=== PATIENT | female | born 1955 | race Caucasian/White ===

== ENCOUNTER 2019-09-11 11:44 | Inpatient (IN) | payer BC, OTHER ==
[~2019-09-11] VITALS: Ht 154.9 cm; Wt 86.2 kg
--- NOTE | 2019-09-11 11:50 | NUR ---
PT TO ER BED 9
[2019-09-11 11:52] VITALS: BP 131/75
--- NOTE | 2019-09-11 12:07 | NUR ---
hx of crohn's c/o bright red blood per rectum and lower abdominal cramping---
[2019-09-11] MEDS ORDERED: NACL 0.9% 1,000 ML IV SCH (12:37)
[2019-09-11] MEDS ORDERED: fentaNYL 0.05 MG/ML VIAL IVP ONE (12:40)
[2019-09-11] MEDS ORDERED: ONDANSETRON 4 MG/2 ML VIAL IVP ONE (12:40)
[2019-09-11 13:28] LABS: BASOPHILS % (AUTO) 0.2 % (0.0-2.0); EOSINOPHILS # (AUTO) 0.1 K/uL (0-0.4); EOSINOPHILS % (AUTO) 1.2 % (0.0-4.0); HEMATOCRIT 26.7 % (36-48); HEMOGLOBIN 8.5 g/dL (12.0-16.0); LYMPHOCYTES # (AUTO) 1.1 K/uL (2.5-16.5); LYMPHOCYTES % (AUTO) 14.7 % (20.5-51.1); MEAN CORPUSCULAR HEMOGLOBIN 22 pg (27-31); MEAN CORPUSCULAR HGB CONC 32 g/dL (33-37); MEAN CORPUSCULAR VOLUME 70.3 fL (80-94); MONOCYTES # (AUTO) 0.8 K/uL (0.8-1.0); MONOCYTES % (AUTO) 10.6 % (1.7-9.3); NEUTROPHILS # (AUTO) 5.4 K/uL (1.8-7.7); NEUTROPHILS % (AUTO) 73.3 % (42.2-75.2); PLATELET COUNT (AUTO) 485 K/uL (140-450); RED BLOOD CELL COUNT(AUTO) 3.79 MIL/uL (4.20-5.40); RED CELL DISTRIBUTION WIDTH 18.5 % (11.6-13.7); WHITE BLOOD COUNT (AUTO) 7.3 K/uL (4.8-10.8)
[2019-09-11 13:50] LABS: PROTHROMBIN TIME 10.8 secs (10.8-13.4)
[2019-09-11 14:02] LABS: ALBUMIN 2.6 g/dL (3.4-5.0); CARBON DIOXIDE 29.5 mmol/L (21-32); CREATININE 0.7 mg/dL (0.6-1.3); POTASSIUM 3.5 mmol/L (3.5-5.1); TOTAL BILIRUBIN 0.5 mg/dL (0.0-1.0)
--- NOTE | 2019-09-11 14:26 | NUR ---
PT TO CT VIA [facility]
--- NOTE | 2019-09-11 14:58 | NUR ---
pt back fron CT family at bedside. vss
[2019-09-11] MEDS ORDERED: HYDROcodone/APAP 7.5/325 MG 1 TAB PO PRN (17:00)
[2019-09-11] MEDS ORDERED: ACETAMINOPHEN 325 MG TAB PO PRN (17:00)
[2019-09-11] MEDS ORDERED: MORPHINE SULFATE 2 MG/ML SYR IVP PRN (17:00)
[2019-09-11] MEDS ORDERED: ONDANSETRON 4 MG/2 ML VIAL IM/IVP PRN (17:00)
[2019-09-11] MEDS ORDERED: DOCUSATE SODIUM 100 MG GELCAP PO PRN (17:00)
[2019-09-11 17:07] LABS: APPEARANCE,URINE CLEAR (CLEAR); BILIRUBIN,URINE NEGATIVE (NEGATIVE); BLOOD, URINE TRACE-L (NEGATIVE); COLOR,URINE YELLOW (YELLOW); LEUKOCYTE ESTERASE ,URINE TRACE (NEGATIVE); NITRITE, URINE POSITIVE (NEGATIVE); PH,URINE 7.5 (5.0-9.0); UGLUCOSE NEGATIVE (NEGATIVE)
[2019-09-11 17:16] LABS: RBC,URINE 0-5 /HPF (0-5)
--- NOTE | 2019-09-11 17:48 | NUR ---
Pt transferred to Tele via [facility] ROOM 106-A REPORT GIVEN TO JESENIA RICHARDSON
--- NOTE | 2019-09-11 17:50 | NUR ---
PATIENT ARRIVED FROM ER, AMBULATED TO [facility] BED WITH STEADY GAIT. NO BLEEDING NOTED. NO DISTRESS NOTED. AAOX4, CALM, COOPERATIVE, SKIN COLOR APPROPRIATE TO ETHNICITY, WARM TO TOUCH. SKIN INTACT. IV SITE INTACT, PATENT. RESPIRATIONS EVEN, UNLABORED, ON ROOM AIR. ORIENTED PATIENT TO ROOM AND CALL LIGHT. REVIEWED PLAN OF CARE WITH PATIENT. PATIENT VERBALIZED UNDERSTANDING. SAFETY MEASURES IN PLACE, CALL LIGHT WITHIN REACH. WILL CONTINUE TO MONITOR.
[2019-09-11 18:41] LABS: CHOL/HDL RATIO 3.5 (1-4.5); FREE T4 (FREE THYROXINE) 1.87 ng/dL (0.76-1.46); MAGNESIUM 1.9 mg/dL (1.8-2.4); PHOSPHORUS 3.7 mg/dL (2.5-4.9); THYROID STIMULATING HORMONE 1.57 uIU/mL (0.34-3.74)
[2019-09-11] MEDS ORDERED: MULT-2253 PO (18:50)
[2019-09-11] MEDS ORDERED: CRAN450C PO (18:50)
[2019-09-11] MEDS ORDERED: FOLIC ACID PO (18:50)
[2019-09-11] MEDS ORDERED: METF500T PO (18:50)
[2019-09-11] MEDS ORDERED: FERR325E14 PO (18:50)
[2019-09-11] MEDS ORDERED: VITAMIN D3 PO (18:50)
[2019-09-11] MEDS ORDERED: CALCIUM PO (18:50)
[2019-09-11] MEDS ORDERED: SIMV20TA1 PO (18:50)
[2019-09-11] MEDS ORDERED: LATA7.5D OP (18:50)
[2019-09-11] MEDS ORDERED: GLIP5TAB4 PO (18:50)
[2019-09-11] MEDS ORDERED: BIOT10002 PO (18:50)
[2019-09-11] MEDS ORDERED: FAMO10TA93 PO (18:50)
[2019-09-11] MEDS ORDERED: LATA2.5S8 OP (18:50)
[2019-09-11] MEDS ORDERED: CHOL100013 PO (18:50)
[2019-09-11] MEDS ORDERED: ADAL40KI1 SUBQ (18:50)
[2019-09-11] MEDS ORDERED: FOLIC (18:50)
--- NOTE | 2019-09-11 19:18 | NUR ---
GAVE REPORT TO VEHICLE ASSEMBLER NURSE FOR CONTINUITY OF CARE. PATIENT IN STABLE CONDITION.
--- NOTE | 2019-09-11 19:19 | NUR ---
RECEIVED BEDSIDE SHIFT REPORT FROM AM SHIFT NURSE JESENIA. PATIENT IS LYING IN BED WITH FAMILY AT BEDSIDE. NO SOB OR DISTRESS NOTED. ON ROOM AIR. IV ACCESS ON RIGHT AC 20 GAUGE, PATENT AND INTACT, SALINE LOCK. BED IN LOW, SAFETY MEASURES IN PLACE. PATIENT IS AMBULATORY. CALL LIGHT PLACED WITHIN PATIENT REACH. BOARD UPDATED. WILL CONTINUE TO MONITOR PATIENT.
[2019-09-11] MEDS ORDERED: DEXTROSE 50% 50 ML SYR IVP PRN (19:40)
[2019-09-11] MEDS ORDERED: methylPREDNISolone SS 125 MG/2 ML VIAL IVP SCH (20:00)
[2019-09-11] MEDS: BLOOD GLUCOSE MONITORING 1 DEV DEV FS SCH (21:00)
--- NOTE | 2019-09-11 21:00 | NUR ---
PATIENT HAD A BLOOD GLUCOSE RESULT OF 135. NO INSULIN COVERAGE NEEDED. WILL CONTINUE TO MONITOR PATIENT.
[2019-09-11 21:20] LABS: BARBITURATE, URINE NEG. ng/ml (NEG <=200); BENZODIAZEPINE, URINE NEG. ng/mL (NEG <=200); CANNABINOID, URINE NEG. ng/mL (NEG <=50); COCAINE, URINE NEG. ng/mL (NEG <=300); OPIATE, URINE NEG. ng/mL (NEG <=2000); PHENCYCLIDINE SCREEN,URINE NEG. ng/mL (NEG <=25)
[2019-09-11] MEDS ORDERED: AMPICILLIN/SULBACTAM 1.5 GM VIAL ONE (21:56)
[2019-09-11] MEDS: AMPICILLIN/SULBACTAM 1.5 GM in NACL 0.9% 50 ML IV SCH (22:47)
[2019-09-11] MEDS: DEXT 5% / NACL 0.9% 500 ML IV SCH (22:48)
--- NOTE | 2019-09-12 00:05 | NUR ---
VITALS TAKEN AT THIS TIME. PATIENT IS RESTING COMFORTABLY. NO SOB OR DISTRESS NOTED. WILL CONTINUE TO MONITOR PATIENT.
[2019-09-12 00:15] VITALS: BP 113/60
[2019-09-12] MEDS: DEXT 5% / NACL 0.9% 500 ML IV SCH ×4 (02:00→17:11)
--- NOTE | 2019-09-12 02:15 | NUR ---
ROUNDS DONE. VISIBLE CHEST RISE AND FALL NOTED. WILL CONTINUE TO MONITOR PATIENT.
[2019-09-12 04:00] VITALS: BP 118/63
--- NOTE | 2019-09-12 04:00 | NUR ---
VITALS TAKEN AT THIS TIME. VISIBLE CHEST RISE AND FALL NOTED. WILL CONTINUE TO MONITOR PATIENT.
[2019-09-12] MEDS ORDERED: AMPICILLIN/SULBACTAM 1.5 GM VIAL ONE (04:33)
[2019-09-12] MEDS: AMPICILLIN/SULBACTAM 1.5 GM in NACL 0.9% 50 ML IV SCH ×2 (04:39→12:12)
[2019-09-12] MEDS: INSULIN LISPRO SLIDING SCALE 100 UNITS/ML VIAL SUBQ PRN ×4 (06:27→21:33)
[2019-09-12] MEDS: BLOOD GLUCOSE MONITORING 1 DEV DEV FS SCH ×4 (06:32→21:33)
--- NOTE | 2019-09-12 06:33 | NUR ---
PATIENT NOTED WITH A BLOOD GLUCOSE RESULT OF 195 WITH 2 UNITS OF REGULAR INSULIN GIVEN. WILL CONTINUE TO MONITOR PATIENT.
--- NOTE | 2019-09-12 06:36 | NUR ---
PATIENT IN STABLE CONDITION. CALL LIGHT PLACED WITHIN PATIENT REACH. WILL ENDORSE TO AM SHIFT NURSE FOR CONTINUITY OF CARE.
[2019-09-12 07:03] LABS: BASOPHILS % (AUTO) 0.1 % (0.0-2.0); EOSINOPHILS % (AUTO) 0.1 % (0.0-4.0); HEMATOCRIT 25.4 % (36-48); HEMOGLOBIN 8.2 g/dL (12.0-16.0); LYMPHOCYTES # (AUTO) 0.4 K/uL (2.5-16.5); LYMPHOCYTES % (AUTO) 6.4 % (20.5-51.1); MEAN CORPUSCULAR HEMOGLOBIN 23 pg (27-31); MEAN CORPUSCULAR HGB CONC 32 g/dL (33-37); MEAN CORPUSCULAR VOLUME 70.6 fL (80-94); MONOCYTES # (AUTO) 0.1 K/uL (0.8-1.0); MONOCYTES % (AUTO) 1.9 % (1.7-9.3); NEUTROPHILS # (AUTO) 6.1 K/uL (1.8-7.7); NEUTROPHILS % (AUTO) 91.5 % (42.2-75.2); PLATELET COUNT (AUTO) 456 K/uL (140-450); WHITE BLOOD COUNT (AUTO) 6.7 K/uL (4.8-10.8)
--- NOTE | 2019-09-12 07:27 | NUR ---
SHIFT REPORT RECEIVED M TAXI CAB DRIVER NURSE. PT IS IN BED ALERT AND AWAKE. NO COMPLAINS OF PAIN. CALL LIGHT IN REACH.
[2019-09-12 07:35] LABS: ANION GAP 11.3 (8-16); CARBON DIOXIDE 30.7 mmol/L (21-32); CREATININE 0.6 mg/dL (0.6-1.3)
[2019-09-12 07:47] LABS: MAGNESIUM 1.9 mg/dL (1.8-2.4)
[2019-09-12 08:00] VITALS: BP 119/59
--- NOTE | 2019-09-12 08:23 | NUR ---
PATIENT HAS BEEN SCREENED AND CATEGORIZED MODERATE NUTRITION RISK. PATIENT WILL BE SEEN WITHIN 3-5 DAYS OF ADMISSION. 09/14/19 09/16/[address]
[2019-09-12] MEDS: LACTOBACILLUS RHAMNOSUS GG 1 EACH CAP PO SCH (08:54)
[2019-09-12] MEDS: methylPREDNISolone SS 40 MG/ML VIAL IVP SCH ×2 (08:54→21:24)
[2019-09-12] MEDS ORDERED: SIMETHICONE 80 MG TAB.CHEW PO PRN (09:05)
--- NOTE | 2019-09-12 09:45 | NUR ---
PT IS RESTING IN BED AT THIS TIME. PT IS ALERT WITH FAMILY BE BEDSIDE. NO DISTRESS NOTED. CALL LIGHT IN REACH.
[2019-09-12] MEDS: MESALAMINE 250 MG CAPER PO SCH ×3 (09:51→17:08)
--- NOTE | 2019-09-12 11:54 | NUR ---
PT IS IN BED ALERT AND WAKE. PT TALKING TO DAUGHTER IN LAW. NO COMPLAINS OF PAIN.NO DISTRESS NOTED. CALL LIGHT IN REACH.
[2019-09-12 12:00] VITALS: BP 129/64
[2019-09-12 16:00] VITALS: BP 121/57
[2019-09-12 16:09] LABS: T4 (THYROXINE) 9.2 ug/dL (4.5-12.0)
--- NOTE | 2019-09-12 19:05 | NUR ---
RECEIVED BEDSIDE REPORT FROM AM SHIFT NURSE. PATIENT IS SITTING ON BED AWAKE AND ALERT, WITH ON GOING CONSULTATION AT THIS TIME WITH MD AND FAMILY MEMBERS. NO SOB OR DISTRESS NOTED. ON ROOM AIR. IV ACCESS ON RIGHT AC 20 GAUGE. PATENT, INTACT AND INFUSING WELL. BED IN LOW, SAFETY MEASURES IN PLACE. SKIN IS INTACT. INITIAL ASSESSMENT DONE. BOARD UPDATED. CALL LIGHT PLACED WITHIN PATIENT REACH. WILL CONTINUE TO MONITOR PATIENT.
--- NOTE | 2019-09-12 19:24 | NUR ---
SHIFT REPORT GIVEN TO WATER JET OPERATOR NURSE. PT IS IN BED IN STABLE CONDITION. FAMILY BY BEDSIDE. CALL LIGHT IN REACH.
[2019-09-12] MEDS ORDERED: LEVOFLOXACIN 500 MG/D5W PREMIX 100 ML IV SCH (20:00)
[2019-09-12] MEDS ORDERED: SODIUM FERRIC GLUCONATE 125 MG in NACL 0.9% 100 ML IV SCH (20:00)
[2019-09-12 20:10] VITALS: BP 108/56
--- NOTE | 2019-09-12 20:11 | NUR ---
2 VIALS OF SODIUM FERRIC GLUCONATE 62.5MG WAS PULLED OUT OF OMNICELL TO COMPLETE DOSE OF SODIUM FERRIC GLUCONATE 125MG PER MD ORDER. EMAR ONLY LET ME SCAN 1 VIAL OF SODIUM FERRIC GLUCONATE 62.5MG. VERIFIED BY RN NURSE MEZA AND CHARGE NURSE ROY. FLOYD
--- NOTE | 2019-09-12 21:30 | NUR ---
PATIENT HAD A BLOOD GLUCOSE RESULT OF 154 WITH 2 UNITS OF REGULAR INSULIN GIVEN. WILL CONTINUE TO MONITOR PATIENT.
--- NOTE | 2019-09-12 22:20 | NUR ---
ROUNDS DONE. PATIENT RESTING COMFORTABLY WITH EYES CLOSED. VISIBLE CHEST RISE AND FALL NOTED. CALL LIGHT WITHIN PATIENT REACH. WILL CONTINUE TO MONITOR PATIENT.
[2019-09-13 00:05] VITALS: BP 106/55
--- NOTE | 2019-09-13 00:05 | NUR ---
VITALS TAKEN AT THIS TIME. VISIBLE CHEST RISE AND FALL NOTED. CALL LIGHT WITHIN PATIENT REACH. WILL CONTINUE TO MONITOR PATIENT.
[2019-09-13] MEDS: DEXT 5% / NACL 0.9% 500 ML IV SCH (01:58)
--- NOTE | 2019-09-13 02:28 | NUR ---
ROUNDS DONE. NO SOB OR DISTRESS NOTED. CALL LIGHT PLACED WITHIN PATIENT REACH. WILL CONTINUE TO MONITOR PATIENT.
[2019-09-13] MEDS ORDERED: DEXT 5% /NACL 0.9% 1,000 ML IV SCH (03:15)
[2019-09-13 04:05] VITALS: BP 108/63
--- NOTE | 2019-09-13 04:05 | NUR ---
VITALS DONE. VISIBLE CHEST RISE AND FALL NOTED. WILL CONTINUE TO MONITOR PATIENT.
--- NOTE | 2019-09-13 04:20 | NUR ---
VITALS DONE. NO SOB OR DISTRESS NOTED. CALL LIGHT WITHIN PATIENT REACH. WILL CONTINUE TO MONITOR PATIENT.
[2019-09-13] MEDS: INSULIN LISPRO SLIDING SCALE 100 UNITS/ML VIAL SUBQ PRN ×4 (06:28→21:06)
[2019-09-13] MEDS: BLOOD GLUCOSE MONITORING 1 DEV DEV FS SCH ×4 (06:32→21:03)
--- NOTE | 2019-09-13 06:32 | NUR ---
PATIENT HAD A BLOOD GLUCOSE RESULT OF 196 WITH 2 UNITS OF REGULAR HUMALOG INSULIN GIVEN.
--- NOTE | 2019-09-13 06:38 | NUR ---
PATIENT IN STABLE CONDITION. CALL LIGHT WITHIN PATIENT REACH. WILL ENDORSE TO AM SHIFT NURSE FOR CONTINUITY OF CARE.
[2019-09-13 07:01] LABS: BASOPHILS % (AUTO) 0.1 % (0.0-2.0); HEMATOCRIT 25.2 % (36-48); HEMOGLOBIN 7.9 g/dL (12.0-16.0); LYMPHOCYTES # (AUTO) 0.4 K/uL (2.5-16.5); LYMPHOCYTES % (AUTO) 6.3 % (20.5-51.1); MEAN CORPUSCULAR HEMOGLOBIN 23 pg (27-31); MEAN CORPUSCULAR HGB CONC 32 g/dL (33-37); MEAN CORPUSCULAR VOLUME 71.3 fL (80-94); MONOCYTES # (AUTO) 0.3 K/uL (0.8-1.0); MONOCYTES % (AUTO) 4.5 % (1.7-9.3); NEUTROPHILS # (AUTO) 6.3 K/uL (1.8-7.7); NEUTROPHILS % (AUTO) 89.1 % (42.2-75.2); PLATELET COUNT (AUTO) 491 K/uL (140-450); RED BLOOD CELL COUNT(AUTO) 3.54 MIL/uL (4.20-5.40); RED CELL DISTRIBUTION WIDTH 18.3 % (11.6-13.7)
--- NOTE | 2019-09-13 07:10 | NUR ---
RECEIVED BEDSIDE REPORT FROM NIGHTSHIFT NURSE. PT RESTING IN BED UPON ARRIVAL. ABLE TO MAKE NEEDS KNOWN. RESPIRATIONS EVEN AND UNLABORED WITH NO SOB OR RESPIRATORY DISTRESS. SKIN WARM AND DRY TO TOUCH. IV SITE IN RAC 20G IS CLEAN, DRY, AND INTACT. SAFETY MEASURES IN PLACE. WILL CONTINUE TO MONITOR.
[2019-09-13 07:18] LABS: ANION GAP 9.4 (8-16); CARBON DIOXIDE 31.2 mmol/L (21-32); CREATININE 0.6 mg/dL (0.6-1.3); POTASSIUM 4.6 mmol/L (3.5-5.1)
[2019-09-13 07:25] LABS: MAGNESIUM 1.9 mg/dL (1.8-2.4)
[2019-09-13 08:00] VITALS: BP 121/66
[2019-09-13] MEDS: methylPREDNISolone SS 40 MG/ML VIAL IVP SCH ×2 (08:57→21:08)
[2019-09-13] MEDS: LACTOBACILLUS RHAMNOSUS GG 1 EACH CAP PO SCH (08:58)
[2019-09-13] MEDS: MESALAMINE 250 MG CAPER PO SCH ×3 (08:59→17:57)
--- NOTE | 2019-09-13 09:05 | NUR ---
ADMINISTERED SCHED MED PRESCRIBED PER MD ORDER. PT TOLERATED WELL. MEDICATION EDUCATION PERFORMED. PT VERBALIZED UNDERSTANDING. SAFETY MEASURES IN PLACE. WILL CONTINUE TO MONITOR.
[2019-09-13 10:07] LABS: FERRITIN 48 ng/mL (15-150); FOLIC ACID > 20.00 ng/mL (>3.0)
--- NOTE | 2019-09-13 10:15 | NUR ---
PT IS AWARE OF PROCEDURE TODAY AT 1530 AND IS NPO. CONSENT IS SIGNED AND PRE-OP CHECKLIST HAS BEEN COMPLETED. SAFETY MEASURES IN PLACE.
--- NOTE | 2019-09-13 11:30 | NUR ---
BLOOD SUGAR IS 196. 2 UNITS OF INSULIN WILL BE GIVEN WITH LUNCH. SAFETY MEASURES IN PLACE. WILL CONTINUE TO MONITOR.
[2019-09-13 12:00] VITALS: BP 135/99
[2019-09-13] MEDS ORDERED: SODIUM FERRIC GLUCONATE 125 MG in NACL 0.9% 100 ML IV SCH (12:00)
--- NOTE | 2019-09-13 12:05 | NUR ---
ADMINISTERED SCHED MED PRESCRIBED PER MD ORDER. PT TOLERATED WELL. MEDICATION EDUCATION PERFORMED. PT VERBALIZED UNDERSTANDING. SAFETY MEASURES IN PLACE. WILL CONTINUE TO MONITOR.
--- NOTE | 2019-09-13 13:25 | NUR ---
ADMINISTERED SCHED MED PRESCRIBED PER MD ORDER. PT TOLERATED WELL. MEDICATION EDUCATION PERFORMED. PT VERBALIZED UNDERSTANDING. SAFETY MEASURES IN PLACE. WILL CONTINUE TO MONITOR.
--- NOTE | 2019-09-13 14:19 | NUR ---
HOURLY ROUDNING. PT RESTING IN BED UPON ARRIVAL. ABLE TO MAKE NEEDS KNOWN. RESPIRATIONS EVEN AND UNLABORED WITH NO SOB OR RESPIRATORY DISTRESS. SKIN WARM AND DRY TO TOUCH. SAFETY MEASURES IN PLACE. WILL CONTINUE TO MONITOR.
--- NOTE | 2019-09-13 15:25 | NUR ---
OR CAME AND TOOK PATIENT FOR HER FLEXIBLE SIGMOIDOSCOPY. WILL CONTINUE TO MONITOR
[2019-09-13] MEDS ORDERED: diphenhydrAMINE 50 MG/ML VIAL ONE (15:47)
[2019-09-13] MEDS ORDERED: MIDAZOLAM 2 MG/2 ML VIAL ONE (15:49)
[2019-09-13] MEDS: fentaNYL 0.05 MG/ML VIAL ONE ×2 (15:59→17:17)
[2019-09-13] MEDS: MIDAZOLAM 2 MG/2 ML VIAL ONE ×2 (16:00→17:17)
[2019-09-13 17:40] VITALS: BP 128/53
--- NOTE | 2019-09-13 17:40 | NUR ---
PT RETURNED BACK FROM OR. REPORT GIVEN FROM OR NURSE. PT TOLERATED WELL. MULTIPLE POLYPS VIEWED FROM PROCEDURE. BIOPSY TAKEN. PT IS STABLE. VITAL SIGNS: 128/53, 85 HR, 98.2 TEMP, 18 RR, 96% O2 ON RA. SAFETY MEASURES IN PLACE. WILL CONTINUE TO MONITOR.
--- NOTE | 2019-09-13 17:48 | NUR ---
ADMINISTERED SCHED MED PRESCRIBED PER MD ORDER. PT TOLERATED WELL. MEDICATION EDUCATION PERFORMED. PT VERBALIZED UNDERSTANDING. SAFETY MEASURES IN PLACE. WILL CONTINUE TO MONITOR.
--- NOTE | 2019-09-13 19:04 | NUR ---
PT IV IS LEAKING. IV SITE IN RIGHT AC 22G WAS DISCONTINUED. NEW IV PLACED IN RIGHT WRIST 22G IS CLEAN, DRY, AND INTACT. SAFETY MEASURES IN PLACE. WILL CONTINUE TO MONITOR.
--- NOTE | 2019-09-13 19:25 | NUR ---
ENDORSED TO NIGHTSHIFT NURSE. PT RESTING IN BED UPON ARRIVAL. ABLE TO MAKE NEEDS KNOWN. RESPIRATIONS EVEN AND UNLABORED WITH NO SOB OR RESPIRATORY DISTRESS. SKIN WARM AND DRY TO TOUCH. SAFETY MEASURES IN PLACE. PT IS STABLE
--- NOTE | 2019-09-13 19:30 | NUR ---
RECEIVED BEDSIDE REPORT FROM AM SHIFT RN FOR PT'S CONTINUITY OF CARE. PT IS AAOX4, AMBULATORY, FAMILY MEMBER AT BEDSIDE, IS ON FORM PRESSER, ON ROOM AIR, HAS RIGHT WRIST 22G SALINE LOCK, DENIES ANY PAIN AT THIS TIME. EXPLAINED TO PT THE DRY BOX TENDER ROUTINE, REORIENTED PT TO THE HOSPITAL ENVIRONMENT, PT VERBALIZED UNDERSTANDING. SAFETY MEASURES IN PLACE, AND CALL LIGHT IS WITHIN REACH. WILL MONITOR PT THROUGHOUT SHIFT.
[2019-09-13 20:00] VITALS: BP 129/57
[2019-09-13] MEDS ORDERED: LEVOFLOXACIN 500 MG/D5W PREMIX 100 ML IV SCH (20:00)
--- NOTE | 2019-09-13 21:08 | NUR ---
BLOOD GLUCOSE CHECKED AND CHARTED. ADMINISTERED SCHEDULED MEDICATIONS ORDERED. PT REQUESTED, AND PROVIDED SOME SNACKS. PT TOLERATED THEM WELL. PT DENIES ANY PAIN AT THIS TIME. WILL CONTINUE TO MONITOR PT.
[2019-09-14] VITALS: BP 108/59
--- NOTE | 2019-09-14 | NUR ---
VS CHECKED AND CHARTED. PT ASLEEP WITH NO SIGNS OF DISTRESS. WILL CONTINUE TO MONITOR PT.
--- NOTE | 2019-09-14 01:30 | NUR ---
PT WENT TO THE RESTROOM, STATED STILL HAS DIARRHEA. PT TOLERATED ACTIVITY. PT'S NEEDS MET.
[2019-09-14 04:00] VITALS: BP 132/66
--- NOTE | 2019-09-14 04:00 | NUR ---
VS CHECKED AND CHARTED. PT DENIES ANY PAIN AT THIS TIME. WILL CONTINUE TO MONITOR PT.
[2019-09-14] MEDS: BLOOD GLUCOSE MONITORING 1 DEV DEV FS SCH (06:00)
[2019-09-14] MEDS: INSULIN LISPRO SLIDING SCALE 100 UNITS/ML VIAL SUBQ PRN (06:17)
--- NOTE | 2019-09-14 06:22 | NUR ---
BLOOD GLUCOSE CHECKED AND CHARTED. ADMINISTERED SUBQ INSULIN PER PROTOCOL ORDERED. PT TOLERATED IT WELL. MD AT BEDSIDE TALKING WITH PT RE: PLAN OF CARE. PT IN STABLE CONDITION, DENIES ANY PAIN AT THIS TIME. WILL ENDORSE TO AM SHIFT RN FOR PT'S CONTINUITY OF CARE.
[2019-09-14 07:18] LABS: ANION GAP 10.6 (8-16); CARBON DIOXIDE 30.5 mmol/L (21-32); CREATININE 0.7 mg/dL (0.6-1.3); POTASSIUM 5.1 mmol/L (3.5-5.1)
[2019-09-14 07:19] LABS: BASOPHILS % (AUTO) 0.1 % (0.0-2.0); HEMATOCRIT 25.8 % (36-48); HEMOGLOBIN 8.2 g/dL (12.0-16.0); LYMPHOCYTES # (AUTO) 0.6 K/uL (2.5-16.5); LYMPHOCYTES % (AUTO) 8.5 % (20.5-51.1); MEAN CORPUSCULAR HEMOGLOBIN 23 pg (27-31); MEAN CORPUSCULAR HGB CONC 32 g/dL (33-37); MEAN CORPUSCULAR VOLUME 71.5 fL (80-94); MONOCYTES # (AUTO) 0.3 K/uL (0.8-1.0); MONOCYTES % (AUTO) 4.9 % (1.7-9.3); NEUTROPHILS # (AUTO) 5.8 K/uL (1.8-7.7); NEUTROPHILS % (AUTO) 86.5 % (42.2-75.2); PLATELET COUNT (AUTO) 499 K/uL (140-450); RED BLOOD CELL COUNT(AUTO) 3.61 MIL/uL (4.20-5.40); RED CELL DISTRIBUTION WIDTH 18.5 % (11.6-13.7); WHITE BLOOD COUNT (AUTO) 6.8 K/uL (4.8-10.8)
--- NOTE | 2019-09-14 07:20 | NUR ---
RECEIVED REPORT FROM NIGHT NURSE. PT IN STABLE CONDITION, AWAKE IN BED, NO DISTRESS NOTED. IV IN PLACE IN R H 22G SALINE LOCKED, PATENT AND ASYMPTOMATIC. RESPIRATIONS EVEN AND UNLABORED ON ROOM AIR, CLEAR BREATH SOUNDS. NPO STATUS. PT ABLE TO AMBULATE WITH ASSIST. SKIN INTACT. 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 SAFETY MEASURES IN PLACE. CALL LIGHT WITHIN REACH. BED IN LOW POSITION. WILL CONTINUE TO MONITOR.
[2019-09-14 08:00] VITALS: BP 128/69
[2019-09-14] MEDS: methylPREDNISolone SS 40 MG/ML VIAL IVP SCH (08:10)
[2019-09-14] MEDS: MESALAMINE 250 MG CAPER PO SCH (08:10)
--- NOTE | 2019-09-14 08:17 | NUR ---
MEDICATIONS ADMINISTERED PER ORDER. PT TOLERATED WELL, NO DISTRESS NOTED. NO COMPLAINTS OF PAIN. SAFETY MEASURES IN PLACE. CALL LIGHT WITHIN REACH, WILL CONTINUE TO MONITOR.
[2019-09-14] MEDS ORDERED: LEVO500T98 PO (08:31)
[2019-09-14] MEDS ORDERED: INUL1CTB PO (08:31)
[2019-09-14] MEDS ORDERED: METH4TAB1 PO (08:31)
[2019-09-14] MEDS ORDERED: LACTOBACILLUS RHAMNOSUS GG 1 EACH CAP PO SCH (09:00)
[2019-09-14 09:04] LABS: PHOSPHORUS 3.2 mg/dL (2.5-4.9)
[2019-09-14 09:22] VITALS: BP 128/69
--- NOTE | 2019-09-14 10:45 | NUR ---
PT DISCHARGED HOME AT THIS TIME. DISCHARGE, MEDICATION AND FOLLOWUP TEACHINGS GIVEN TO PT, PT VERBALIZED UNDERSTANDING. DISCHARGE PAPERWORK SIGNED BY PT. PNA AND FLU VACCINES UP TO DATE. PT STABLE UPON DISCHARGE, RESPIRATIONS EVEN AND UNLABORED, SKIN INTACT, NO PAIN. IV REMOVED WITH MINIMAL BLOOD LOSS AND LUMEN INTACT. ID BANDS REMOVED. BELONGINGS VERIFIED WITH PT AND RETURNED. PT ESCORTED OFF UNIT ON FOOT, AND LEFT HOSPITAL VIA PRIVATE VEHICLE.
[2019-09-14 10:55] LABS: TRANSFERRIN 159 mg/dL (200 - 370)
== END 2019-09-14 10:45 | disposition home or self-care (01) | DRG 245 ==
LOC: MED 11:44 → MTU 17:08
PROVIDERS: ADMIT General Practice; ATTEND General Practice
PROC: 0DBN8ZX Excision of Sigmoid Colon, Via Natural or Artificial Opening Endoscopic, Diagnostic (ICD-10-PCS; principal; 2019-09-13 15:30)
DX: K51.90 Ulcerative colitis, unspecified, without complications (principal); E43 Unspecified severe protein-calorie malnutrition; D50.9 Iron deficiency anemia, unspecified; D63.8 Anemia in other chronic diseases classified elsewhere; E78.5 Hyperlipidemia, unspecified; E66.9 Obesity, unspecified; E11.9 Type 2 diabetes mellitus without complications; H40.9 Unspecified glaucoma; M54.30 Sciatica, unspecified side; M19.90 Unspecified osteoarthritis, unspecified site; K63.89 Other specified diseases of intestine; N39.0 Urinary tract infection, site not specified; Z90.710 Acquired absence of both cervix and uterus; Z90.49 Acquired absence of other specified parts of digestive tract; Z98.51 Tubal ligation status; Z83.3 Family history of diabetes mellitus; Z82.49 Family history of ischemic heart disease and other diseases of the circulatory system; Z68.37 Body mass index [BMI] 37.0-37.9, adult
CPT/HCPCS: 36415; 71045; 80048; 80053; 80305; 81001; 82150; 82607; 82728; 82746; 82948; 83036; 83540; 83605; 83690; 83735; 83880; 84100; 84436; 84439; 84443; 84479; 84484; 85025; 85045; 85610; 85730; 86886; 86900; 86901; 87040; 87070; 87081; 87086; 87186; 93005; 96374; 96375; 99285; J0295; J1200; J1815; J1956; J2250; J2405; J2916; J2920; J2930; J3010; J7042; J7060; Q0092; Q9967

== ENCOUNTER 2020-01-15 21:25 | Emergency (ER) | payer OTHER ==
[~2020-01-15] VITALS: Ht 157.5 cm; Wt 92.5 kg
[~2020-01-15 21:25] MED LIST: ADAL40KI1 SUBQ; BIOT10002 PO; CALCIUM PO; CHOL100013 PO; CRAN450C PO; FAMO10TA93 PO; FERR325E14 PO; FOLIC ACID PO; GLIP5TAB4 PO; INUL1CTB PO; LATA2.5S8 OP; LATA7.5D OP; LEVO500T98 PO; METF500T PO; METH4TAB1 PO; MULT-2253 PO; SIMV20TA1 PO; VITAMIN D3 PO
[2020-01-15 21:30] VITALS: BP 125/57
[2020-01-15] MEDS ORDERED: NACL 0.9% 500 ML IV SCH (21:40)
[2020-01-15] MEDS ORDERED: fentaNYL 0.05 MG/ML VIAL IVP ONE (22:00)
[2020-01-15] MEDS ORDERED: ONDANSETRON 4 MG/2 ML VIAL IVP ONE (22:00)
[2020-01-15 22:30] LABS: BASOPHILS % (AUTO) 0.4 % (0.0-2.0); EOSINOPHILS # (AUTO) 0.1 K/uL (0-0.4); EOSINOPHILS % (AUTO) 0.6 % (0.0-4.0); HEMATOCRIT 29.3 % (36-48); HEMOGLOBIN 9.5 g/dL (12.0-16.0); LYMPHOCYTES # (AUTO) 1.2 K/uL (2.5-16.5); LYMPHOCYTES % (AUTO) 11.4 % (20.5-51.1); MEAN CORPUSCULAR HEMOGLOBIN 26 pg (27-31); MEAN CORPUSCULAR HGB CONC 32 g/dL (33-37); MEAN CORPUSCULAR VOLUME 78.7 fL (80-94); MONOCYTES # (AUTO) 1.3 K/uL (0.8-1.0); MONOCYTES % (AUTO) 11.7 % (1.7-9.3); NEUTROPHILS # (AUTO) 8.3 K/uL (1.8-7.7); NEUTROPHILS % (AUTO) 75.9 % (42.2-75.2); PLATELET COUNT (AUTO) 510 K/uL (140-450); RED BLOOD CELL COUNT(AUTO) 3.72 MIL/uL (4.20-5.40); RED CELL DISTRIBUTION WIDTH 17.9 % (11.6-13.7); WHITE BLOOD COUNT (AUTO) 10.9 K/uL (4.8-10.8)
[2020-01-15 22:49] LABS: PROTHROMBIN TIME 10.5 secs (10.8-13.4)
[2020-01-15 22:50] LABS: ALBUMIN 2.8 g/dL (3.4-5.0); ANION GAP 14.6 (8-16); POTASSIUM 3.6 mmol/L (3.5-5.1); TOTAL BILIRUBIN 0.5 mg/dL (0.0-1.0)
[2020-01-15] MEDS ORDERED: NACL 0.9% 500 ML IV ONE (23:30)
[2020-01-16 00:53] VITALS: BP 121/58
[2020-01-17] MEDS ORDERED: GLIP5TER PO (20:12)
[2020-01-17] MEDS ORDERED: CYAN100T65 PO (20:12)
[2020-01-17] MEDS ORDERED: FERR325E14 PO (20:13)
[2020-01-19] MEDS ORDERED: METR500T1 PO (13:23)
[2020-01-19] MEDS ORDERED: LEVO750T2 PO (14:01)
[2020-01-19] MEDS ORDERED: METR250T2 PO (14:02)
[2020-01-19] MEDS ORDERED: PRED10TA5 PO (14:05)
[2020-01-19] MEDS ORDERED: PRED20TA5 PO (14:06)
== END 2020-01-16 00:50 | disposition home or self-care (01) ==
LOC: MED 21:25
DX: K52.9 Noninfective gastroenteritis and colitis, unspecified (principal); E11.9 Type 2 diabetes mellitus without complications; J45.909 Unspecified asthma, uncomplicated; Z79.899 Other long term (current) drug therapy; Z98.890 Other specified postprocedural states
CPT/HCPCS: 36415; 71045; 74176; 80053; 83605; 83880; 84484; 85025; 85610; 85730; 87040; 93005; 96361; 96374; 96375; 99285; J2405; J3010; J7030; Q0092